=== PATIENT | male | born 1985 | race Caucasian/White ===

== ENCOUNTER 2017-10-29 16:17 | Inpatient (IN) | payer OTHER ==
--- NOTE | 2017-10-29 16:59 | ED ---
Wound/Laceration HPI - General Chief Complaint: Wound/Laceration Stated Complaint: male gu Time Seen by Provider: 10/29/17 16:17 Source: patient, EMS, RN notes reviewed Mode of arrival: EMS Limitations: no limitations - History of Present Illness Initial Comments: 31-year-old male with a benign past medical history who apparently has had testicular pain for the past 3-4 years. He states he couldn't take it anymore today so he cut it out with a leather man knife and flushed down the toilet. His mother called 911 he was brought in for evaluation. He had uncontrolled bleeding per paramedics to was somewhat controlled with pressure. He states his tetanus shots are up-to-date he has no other medical problems 6 no other medication denies any drugs or alcohol at this time. He is ex- was in the [employer] and [employer] overseas. He does not have post medic stress disorder per the patient on questioning. The case was also discussed later with the patient's parents who are present. - Related Data Home Medications Medication Instructions Recorded Confirmed Dm/PE/Acetaminophen/Doxylamine 1 cap PO HS PRN 10/29/17 10/29/17 [Miya-[place] Plus Day-Night Cp] Allergies Allergy/AdvReac Type Severity Reaction Status Date / Time No Known Allergies Allergy Verified 10/29/17 16:51 Review of Systems ROS Statement: Those systems with pertinent positive or pertinent negative responses have been documented in the HPI. ROS Other: All systems not noted in ROS Statement are negative. Past Medical History Additional Past Medical History / Comment(s): Testicular pain Additional Past Surgical History / Comment(s): Patterson Teeth removed Past Psychological History: No Psychological Hx Reported Smoking Status: Former smoker Past Alcohol Use History: None Reported Past Drug Use History: None Reported General Exam - General Exam Comments Initial Comments: This is a well-developed well-nourished awake alert oriented times female he does demonstrate a flat affect. He was brought in by EMS. Limitations: no limitations General appearance: alert, in no apparent distress Head exam: Present: atraumatic, normocephalic, normal inspection Eye exam: Present: normal appearance, PERRL, EOMI. Absent: scleral icterus, conjunctival injection, periorbital swelling ENT exam: Present: normal exam, mucous membranes moist Neck exam: Present: normal inspection. Absent: tenderness, meningismus, lymphadenopathy Respiratory exam: Present: normal lung sounds bilaterally. Absent: respiratory distress, wheezes, rales, rhonchi, stridor Cardiovascular Exam: Present: regular rate, normal rhythm, normal heart sounds. Absent: systolic murmur, diastolic murmur, rubs, gallop, clicks GI/Abdominal exam: Present: soft, normal bowel sounds. Absent: distended, tenderness, guarding, rebound, rigid exam: Present: other (Examination the fifth toe reveals active bleeding from the right scrotum from a 3.5 cm laceration. The actual bleeding site is not visible.) Extremities exam: Present: normal inspection, full ROM, normal capillary refill. Absent: tenderness, pedal edema, joint swelling, calf tenderness Back exam: Present: normal inspection Neurological exam: Present: alert, oriented X3, CN II-XII intact Psychiatric exam: Present: flat affect Skin exam: Present: warm, dry, normal color. Absent: intact, rash Course Vital Signs 10/29/17 10/29/17 16:23 16:30 Temperature 98.1 F Pulse Rate 99 101 H Respiratory 17 17 Rate Blood Pressure 133/79 131/91 O2 Sat by Pulse 100 100 Oximetry - Reevaluation(s) Reevaluation #1: 10/29/17 16:[address] Hou prior to the patient's arrival he did come in to see the patient. Patient will go to the operating room I did discuss case with Dr. Wallace from anesthesia also with Dr. Lou from trauma surgery Reevaluation #2: 10/29/17 17:05 I did discuss case with the patient family members patient will be admitted to the operating room Procedures - Procedures Initial comment: I did attempt to identify the arterial bleeder prepping the scrotum with Betadine and attempted to inject with 2% Xylocaine with epinephrine. I was unable to identify a discrete base of the suspected fascicular arterial bleeding. He was packed and pressure applied pending transfer to the OR. Medical Decision Making - Lab Data Lab Results 10/29/17 Range/Units 16:24 PT 20.8 H (9.0-12.0) sec INR 2.3 H (<1.2) APTT 58.2 H (22.0-30.0) sec - EKG Data -: EKG Interpreted by Me EKG shows normal: sinus rhythm (Sinus tachycardia rate 102. Interval 132 QRS duration 100 QT since QTC 3:30/[address]-T wave configuration) Critical Care Time Critical Care Time: Yes Critical Care Time: 35 minutes of critical care time which includes monitoring the EMS run and discussed with paramedics x-rays discussed with the patient discussed with urology discussed with anesthesiology and discussed with parents. Admission and documentation of the above Disposition Clinical Impression: Laceration of scrotum and testes, History of orchiectomy, Depression Disposition: ADMITTED IP TO THIS HOSP Condition: Serious Referrals: None,Stated [Primary Care Provider] - 1-2 days
[2017-10-29 17:02] LABS: INR 2.3 (<1.2); Partial Thromboplastin Time 58.2 sec (22.0-30.0); Prothrombin Time 20.8 sec (9.0-12.0)
--- NOTE | 2017-10-29 17:03 | P.GSHP ---
History of Present Illness H&P Date: 10/29/17 The patient is a 31-year-old male who arrived in the emergency room this afternoon after self-mutilation. He came via ambulance. He states that he has had chronic testicular pain on the right side and he elected to cut his right testicle off. He cut the testicle off throughout down the toilet and called 911. Emergency room came obviously identified a significant amount of scrotal bleeding. He came in the emergency room and Dr. Jalloh in the emergency room noticed an arterial bleeder but could not control this. Heavy compression dressing was placed on the scrotum. I was contacted. He states that he was in the . He states that he seen several doctors in the for chronic testicular, right, pain but there is no cause or treatment for this chronic testicular pain. He denies PTSD. He denies cycle illnesses. He denies major back issues. He denies bulges or hernias. He denies problems urinating. Vital signs are stable although he is somewhat tachycardic. He is a major hematoma in the scrotum. He will undergo an emergent exploration of the right cord where the vessel be ligated and then I'll drain the hematoma. I explained to the patient the most likely is testicular or scrotal pain will continue. - Constitutional Constitutional: Denies chills, Denies fever - EENT Eyes: denies blurred vision, denies pain Ears, nose, mouth and throat: Denies headache, Denies sore throat - Cardiovascular Cardiovascular: Denies chest pain, Denies shortness of breath - Respiratory Respiratory: Denies cough, Denies 7 - Gastrointestinal Gastrointestinal: Denies abdominal pain, Denies diarrhea, Denies nausea, Denies vomiting - Genitourinary (Female) Genitourinary: Denies dysuria, Denies hematuria - Genitourinary (Male) Genitourinary: Denies dysuria, Denies hematuria - Musculoskeletal Musculoskeletal: Denies myalgias - Integumentary Integumentary: Denies pruritus, Denies rash - Neurological Neurological: Denies numbness, Denies weakness - Psychiatric Psychiatric: Denies anxiety, Denies depression - Endocrine Endocrine: Denies fatigue, Denies weight change Past Medical History Additional Past Medical History / Comment(s): Testicular pain Additional Past Surgical History / Comment(s): Sunflower Teeth removed Past Psychological History: No Psychological Hx Reported Smoking Status: Former smoker Past Alcohol Use History: None Reported Past Drug Use History: None Reported Additional History: The patient was in the for several years. He was deployed to the [place]. He denies PTSD Medications and Allergies Home Medications Medication Instructions Recorded Confirmed Type Dm/PE/Acetaminophen/Doxylamine 1 cap PO HS PRN 10/29/17 10/29/17 History [Mi[facility]-[place] Plus Day-Night Cp] Allergies Allergy/AdvReac Type Severity Reaction Status Date / Time No Known Allergies Allergy Verified 10/29/17 16:51 Surgical - Exam Vital Signs Temp Pulse Resp BP Pulse Ox 98.1 F 99 17 133/79 100 10/29/17 16:23 10/29/17 16:23 10/29/17 16:23 10/29/17 16:23 10/29/17 16:23 - General well developed, well nourished, moderate distress - Eyes PERRL - ENT normal mucosa - Neck no masses - Respiratory normal expansion, normal respiratory effort - Cardiovascular Heart Rate: 100 Rhythm: regular - Abdomen Abdomen: soft, non tender - Genitourinary There is a heavy compression dressing over the right hemiscrotum. There is a marked amount of hematoma in the scrotum. The abdomen is soft. I elected not to expose alone until we get him to the operating room. - Integumentary no rash, no growths - Neurologic normal coordination, normal sensation - Musculoskeletal normal posture - Psychiatric oriented to time, oriented to person, oriented to place, speech is normal, memory intact Assessment and Plan Assessment: Impression: Self-mutilation, right right testicular trauma, right orchiectomy Recommendations: This patient will undergo an emergent exploration of his right inguinal region where the cord will be ligated. I'll then drain the hematoma and explore the scrotum to make sure no further damage has been done. Patient understands that he'll probably still have pain. He understands risk of infection bleeding pain sepsis. He will have a psychiatric evaluation postoperatively
[2017-10-29 17:04] LABS: ALT 24 U/L (21-72); AST 8 U/L (17-59); Albumin 1.2 g/dL (3.5-5.0); Alcohol <10 mg/dL; Alkaline Phosphatase <20 U/L (38-126); Anion Gap 1 mmol/L; Blood Urea Nitrogen 5 mg/dL (9-20); Carbon Dioxide 12 mmol/L (22-30); Glucose 63 mg/dL (74-99); Sodium 143 mmol/L (137-145); Total Bilirubin 0.3 mg/dL (0.2-1.3); Total Protein 2.8 g/dL (6.3-8.2)
[2017-10-29] MEDS ORDERED: NALOXONE 0.4 MG/ML 1 ML VIAL IV PRN (17:08)
[2017-10-29 17:09] LABS: Creatine Kinase 29 U/L (55-170)
[2017-10-29 17:15] LABS: MCH 29.1 pg (25.0-35.0); MCHC 32.2 g/dL (31.0-37.0); MCV 90.4 fL (80.0-100.0); Mean Platelet Volume 6.7; Platelet Count 107 k/uL (150-450); RBC 1.78 m/uL (4.30-5.90); RDW 13.1 % (11.5-15.5); WBC 3.2 k/uL (3.8-10.6)
[2017-10-29] MEDS ORDERED: MIDAZOLAM 2 MG/2 ML VIAL ONE (17:15)
[2017-10-29] MEDS ORDERED: PHENYLEPHRINE-0.9% NACL SYG 1 MG/10 ML SYRINGE ONE (17:15)
[2017-10-29] MEDS ORDERED: PROPOFOL 10 MG/ML 20 ML VIAL IV ONE (17:15)
[2017-10-29] MEDS ORDERED: IV FLUID CONTINUATION 900 ML IV ONE (17:15)
[2017-10-29] MEDS ORDERED: LIDOCAINE 1% INJ 10MG/ML (20 ML MDV) ONE (17:15)
[2017-10-29] MEDS ORDERED: ceFAZolin 1,000 MG VIAL ONE (17:15)
[2017-10-29] MEDS ORDERED: ONDANSETRON 4 MG/2 ML VIAL ONE (17:15)
[2017-10-29] MEDS ORDERED: SUCCINYLCHOLINE CHLORIDE 100 MG/5 ML SYR IV ONE (17:15)
[2017-10-29] MEDS ORDERED: ROCURONIUM BROMIDE 10 MG/ML 10 ML VIAL IV ONE (17:15)
[2017-10-29] MEDS ORDERED: fentaNYL (PF) 50 MCG/ML 2 ML AMP ONE (17:15)
[2017-10-29] MEDS ORDERED: DEXAMETHASONE SOD PHOS (MDV) 100 MG/10 ML VIAL ONE (17:15)
[2017-10-29 17:20] LABS: HCT 16.1 % (39.0-53.0); HGB 5.2 gm/dL (13.0-17.5)
[2017-10-29 17:22] LABS: Creatine Kinase MB 0.3 ng/mL (0.0-2.4); Troponin I <0.012 ng/mL (0.000-0.034)
[2017-10-29 17:29] LABS: Chloride 130 mmol/L (98-107); Potassium 1.5 mmol/L (3.5-5.1)
[2017-10-29 17:30] LABS: Calcium 3.6 mg/dL (8.4-10.2)
[2017-10-29 17:44] LABS: HCT 32.9 % (39.0-53.0); MCH 29.4 pg (25.0-35.0); MCHC 33.8 g/dL (31.0-37.0); Mean Platelet Volume 6.6; RBC 3.78 m/uL (4.30-5.90); RDW 12.8 % (11.5-15.5); WBC 17.2 k/uL (3.8-10.6)
[2017-10-29] MEDS ORDERED: BUPIVACAIN-EPI 0.5%-1:200,000 30 ML VIAL SQ ONE ×2 (17:45→17:52)
[2017-10-29 17:49] LABS: Eosinophils # (M) 0.03 k/uL (0-0.7); Lymphocytes # (M) 0.32 k/uL (1.0-4.8); Monocytes # (M) 0.03 k/uL (0-1.0); Neutrophils # (M) 2.82 k/uL (1.3-7.7); Neutrophils % (M) 88 %; Nucleated Red Blood Cells 0 /100 WBC (0-0); Total Cells Counted 100
[2017-10-29 17:50] LABS: HGB 11.1 gm/dL (13.0-17.5); Platelet Count 226 k/uL (150-450)
[2017-10-29] MEDS ORDERED: ACETAMINOPHEN TAB 325 MG TAB PO PRN (18:04)
[2017-10-29] MEDS ORDERED: HYDROcodone/APAP 5-325MG 1 EACH TAB PO PRN (18:04)
[2017-10-29] MEDS ORDERED: MORPHINE SULFATE 2 MG/ML SYRINGE IV PRN (18:04)
[2017-10-29 18:05] LABS: ALT 27 U/L (21-72); AST 16 U/L (17-59); Albumin 2.9 g/dL (3.5-5.0); Alkaline Phosphatase 29 U/L (38-126); Anion Gap 8 mmol/L; Blood Urea Nitrogen 12 mg/dL (9-20); Calcium 7.5 mg/dL (8.4-10.2); Carbon Dioxide 20 mmol/L (22-30); Chloride 110 mmol/L (98-107); Glucose 144 mg/dL (74-99); Potassium 4.1 mmol/L (3.5-5.1); Sodium 138 mmol/L (137-145); Total Bilirubin 0.6 mg/dL (0.2-1.3)
[2017-10-29] MEDS ORDERED: ONDANSETRON 4 MG/2 ML VIAL IVP PRN (18:10)
[2017-10-29] MEDS ORDERED: KETOROLAC 30 MG/ML 1 ML VIAL IVP PRN (18:10)
--- NOTE | 2017-10-29 18:16 | P.OP ---
Date of Procedure: 10/29/17 Preoperative Diagnosis: Self-mutilation, left orchiectomy, acute blood loss Postoperative Diagnosis: Same Procedure(s) Performed: Right inguinal exploration, ligation of right cord, right scrotal exploration, evacuation of hematoma. Identification of cord structures previously self transected by the patient. Ligation of these structures. Anesthesia: SUNITHA Surgeon: Wild Hou Estimated Blood Loss (ml): 50 Pathology: none sent Condition: stable Disposition: PACU Indications for Procedure: The patient is a 31-year-old gentleman who this afternoon cut his own testicle off and dumped in the toilet because of chronic testicular pain. He immediately called 911 is brought to the emergency room. He is found to have a large gaping hole in his right upper scrotum a large scrotal hematoma and active bleeding. The emergency room staff could not control the bleeding. As I see the patient. The above findings are identified and he comes to the operating room emergently. Description of Procedure: The patient is brought to the operating suite. Him and a successful general endotracheal anesthesia. While there is pressure on the right inguinal cord I make a right inguinal incision. I dissect down through subcutaneous tissue. The external oblique fascias identified. I dissect around the inguinal cord and clamp it. I then explored the hemiscrotum. I evacuated a large clot. I look for a testicle and then is identified. Identify a free ending vas as well as what appears to be a free ending blood vessels. These oversewn with 3-0 Vicryl. I then go back up to the cord and transected. Oversew the cord vessels and vas with 2-0 silk suture ligature I then irrigate thoroughly. I placed a Alfredo-Gudino drain through the scrotum into the inguinal region. I closed the external oblique fascia with interrupted 3-0 Vicryl. The subcutaneous tissue 4-0 chromic and the skin with 4-0 Vicryl. Closed the scrotum in 2 layers of 3-0 chromic. I secured the Alfredo-Gudino to the scrotum with a 3-0 chromic. The wound is dressed. Closing the incision in the inguinal region 10 mL of half percent plain Marcaine block was administered. The patient awake and returned recovery in good condition. Fresh bleeding is probably at most 50 mL. I did evacuated good 2 L of blood out of the scrotum. The patient tolerated procedure well be placed in the hospital postoperatively. Psychiatric evaluation will be asked for.
[2017-10-29] MEDS: SODIUM CHLORIDE 0.9% 1,000 ML IV SCH (20:12)
[2017-10-30 02:19] LABS: Appearance,Urine Clear (Clear); Bacteria,Urine Rare /hpf; Bilirubin,Urine Negative (Negative); Blood,Urine Trace (Negative); Budding Yeast,Urine Rare /hpf; Color,Urine Yellow; Glucose,Urine (UA) Negative (Negative); Hyaline Casts,Urine 3 /lpf (0-2); Ketones,Urine Negative (Negative); Leukocyte Esterase,Urine Negative (Negative); Mucus,Urine Rare /hpf; Nitrite,Urine Negative (Negative); Protein,Urine Negative (Negative); RBC,Urine 11 /hpf (0-5); Specific Gravity,Urine 1.016 (1.001-1.035); Squamous Epithelial Cell,Urine <1 /hpf (0-4); Urobilinogen,Urine <2.0 mg/dL (<2.0); WBC,Urine 1 /hpf (0-5)
[2017-10-30 02:39] LABS: Amphetamine Screen,Urine Not Detected (NotDetected); Barbiturate Screen,Urine Not Detected (NotDetected); Benzodiazepines Screen,Urine Not Detected (NotDetected); Cocaine Screen,Urine Not Detected (NotDetected); Methadone Screen, Urine Not Detected (NotDetected); Opiate Screen,Urine Not Detected (NotDetected); Oxycodone Screen, Urine Not Detected (NotDetected); Phencyclidine Screen,Urine Not Detected (NotDetected); Tricyclic Antidepressant,Urine Not Detected (NotDetected); Urn Cannabinoid Scrn Not Detected (NotDetected)
[2017-10-30 07:36] LABS: Basophils % (A) 0 %; Eosinophils % (A) 0 %; HGB 10.5 gm/dL (13.0-17.5); Lymphocytes # (A) 0.6 k/uL (1.0-4.8); Lymphocytes % (A) 7 %; MCH 29.7 pg (25.0-35.0); MCHC 33.8 g/dL (31.0-37.0); MCV 87.9 fL (80.0-100.0); Mean Platelet Volume 6.5; Monocytes # (A) 0.5 k/uL (0-1.0); Monocytes % (A) 5 %; Neutrophils % (A) 87 %; Platelet Count 214 k/uL (150-450); RBC 3.52 m/uL (4.30-5.90); RDW 13.3 % (11.5-15.5); WBC 9.3 k/uL (3.8-10.6)
[2017-10-30] MEDS: DEXTROSE 5%-0.45% NACL 1,000 ML IV SCH ×2 (09:54→10:00)
[2017-10-30] MEDS: SODIUM CHLORIDE 0.9% 1,000 ML IV SCH ×2 (10:01→14:36)
--- NOTE | 2017-10-30 10:29 | P.PN ---
Subjective Progress Note Date: 10/30/17 The patient is status post right inguinal exploration, ligation of the cord structures, scrotal exploration with evacuation of hematoma and ligation of self mutilated, transected testicle. He has done well overnight. He is using old blood. There is no active bleeding. His vital signs are stable. He seems to be stable mentally. Psychiatry has been consulted but not seen him yet. I will observe him again today. 1 psychiatry cc of improves a discharge then we would allow that. Most of this can be handled as an outpatient. Objective - Vital Signs Vital signs: Vital Signs Temp 97.0 F L 10/30/17 07:00 Pulse 88 10/30/17 07:00 Resp 18 10/30/17 07:00 BP 105/59 10/30/17 07:00 Pulse Ox 97 10/30/17 00:55 Intake & Output 10/29/17 10/30/17 10/30/17 18:59 06:59 18:59 Intake Total 1800 1400 Output Total 50 Balance 1750 1400 Weight 70.307 kg 70.307 kg Intake: IV 800 Amount of Fluid Infused ( 1000 ml) Intake, IV Titration 1000 Amount Sodium Chloride 0.9% 1, 1000 000 ml @ 125 mls/hr IV . Q8H SANDRO Rx#:[id number] Oral 400 Output: Estimated Blood Loss 50 Other: Voiding Method Urinal # Voids 3 - Labs CBC & Chem 7: 10/30/17 06:52 10/29/17 17:35 Labs: Abnormal Lab Results - Last 24 Hours (Table) 10/29/17 10/29/17 10/29/17 Range/Units 16:24 16:24 16:24 WBC 3.2 L (3.8-10.6) k/uL RBC 1.78 L (4.30-5.90) m/uL Hgb 5.2 L* (13.0-17.5) gm/dL Hct 16.1 L* (39.0-53.0) % Plt Count 107 L (150-450) k/uL Neutrophils # (1.3-7.7) k/uL Lymphocytes # (1.0-4.8) k/uL Lymphocytes # (Manual) 0.32 L (1.0-4.8) k/uL PT (9.0-12.0) sec INR (<1.2) APTT (22.0-30.0) sec Potassium 1.5 L* (3.5-5.1) mmol/L Chloride 130 H* (98-107) mmol/L Carbon Dioxide 12 L (22-30) mmol/L BUN 5 L (9-20) mg/dL Creatinine 0.40 L (0.66-1.25) mg/dL Glucose 63 L (74-99) mg/dL Calcium 3.6 L* (8.4-10.2) mg/dL AST 8 L (17-59) U/L Alkaline Phosphatase <20 L (38-126) U/L Total Creatine Kinase 29 L (55-170) U/L Total Protein 2.8 L (6.3-8.2) g/dL Albumin 1.2 L (3.5-5.0) g/dL Urine Blood (Negative) Urine RBC (0-5) /hpf Urine Bacteria (None) /hpf Hyaline Casts (0-2) /lpf Urine Mucus (None) /hpf Urine Yeast (Budding) (None) /hpf U Methamphetamines Scrn (NotDetected) 10/29/17 10/29/17 10/29/17 Range/Units 16:24 17:30 17:35 WBC 17.2 H (3.8-10.6) k/uL RBC 3.78 L (4.30-5.90) m/uL Hgb 11.1 L D (13.0-17.5) gm/dL Hct 32.9 L (39.0-53.0) % Plt Count (150-450) k/uL Neutrophils # (1.3-7.7) k/uL Lymphocytes # (1.0-4.8) k/uL Lymphocytes # (Manual) (1.0-4.8) k/uL PT 20.8 H (9.0-12.0) sec INR 2.3 H (<1.2) APTT 58.2 H (22.0-30.0) sec Potassium (3.5-5.1) mmol/L Chloride 110 H (98-107) mmol/L Carbon Dioxide 20 L (22-30) mmol/L BUN (9-20) mg/dL Creatinine (0.66-1.25) mg/dL Glucose 144 H (74-99) mg/dL Calcium 7.5 L (8.4-10.2) mg/dL AST 16 L (17-59) U/L Alkaline Phosphatase 29 L (38-126) U/L Total Creatine Kinase (55-170) U/L Total Protein 5.0 L (6.3-8.2) g/dL Albumin 2.9 L (3.5-5.0) g/dL Urine Blood (Negative) Urine RBC (0-5) /hpf Urine Bacteria (None) /hpf Hyaline Casts (0-2) /lpf Urine Mucus (None) /hpf Urine Yeast (Budding) (None) /hpf U Methamphetamines Scrn (NotDetected) 10/30/17 10/30/17 Range/Units 02:00 06:52 WBC (3.8-10.6) k/uL RBC 3.52 L (4.30-5.90) m/uL Hgb 10.5 L (13.0-17.5) gm/dL Hct 31.0 L (39.0-53.0) % Plt Count (150-450) k/uL Neutrophils # 8.0 H (1.3-7.7) k/uL Lymphocytes # 0.6 L (1.0-4.8) k/uL Lymphocytes # (Manual) (1.0-4.8) k/uL PT (9.0-12.0) sec INR (<1.2) APTT (22.0-30.0) sec Potassium (3.5-5.1) mmol/L Chloride (98-107) mmol/L Carbon Dioxide (22-30) mmol/L BUN (9-20) mg/dL Creatinine (0.66-1.25) mg/dL Glucose (74-99) mg/dL Calcium (8.4-10.2) mg/dL AST (17-59) U/L Alkaline Phosphatase (38-126) U/L Total Creatine Kinase (55-170) U/L Total Protein (6.3-8.2) g/dL Albumin (3.5-5.0) g/dL Urine Blood Trace H (Negative) Urine RBC 11 H (0-5) /hpf Urine Bacteria Rare H (None) /hpf Hyaline Casts 3 H (0-2) /lpf Urine Mucus Rare H (None) /hpf Urine Yeast (Budding) Rare H (None) /hpf U Methamphetamines Scrn Detected H (NotDetected)
--- NOTE | 2017-10-30 17:52 | P.CN ---
Psychiatric Consult - . Consult date: 10/30/17 Consult:: 10/30/17 17:50 Identifying Information 32 Year old male, single, no children. Lives with his mother. Received honorable discharge 8 months ago from serving in [employer] Psychiatry was consulted to evaluate this patient for depression. Chief complaint Reports to have cut his scrotum due to having pain over the past three years and no one could find the reason/ cause for pain. He reports to have told his mother as the bleeding wont stop. His mother called 911 and brought him to the hospital. His wound was repaired and denies any pain currently History of presenting illness He denies suicidal or homicidal ideations. He stated he has no intentions or plans to kill self. He denies symptoms of depression, gloria or psychosis. Past psychiatric history None reported Substance use history Reports remote use of marijuana. Denies use of marijuana over the past 17 years. He reports drinking alcohol occasionally. Legal problems None reported Family psychiatric treatment history None reported Medical history None reported Social history Reports good childhood. Denies history of abuse. He was 13 when his parents got . He has two full brothers and one half brother. Reports to have obtained associate degree and claims to have worked in [employer] until 8 months ago. Mental status exam 32 year old male. He was on his bed sitting comfortably. He maintains good eye contact. No abnormal movements noted. His speech and thought process were linear and goal directed. His mood is reported as good and affect appropriate. He denies current auditory or visual hallucinations. He denies paranoia. He is alert and oriented X 4. He denies current suicidal or homicidal ideations. His insight and judgment are fair. Diagnosis Adjustment disorder Plan He does not have symptoms of major psychiatric illness. He does need any psychiatric treatment at this time. He does not need sitter as he is not suicidal and feels safe. Thank you for the consult.
[2017-10-31 00:36] VITALS: RESP 16
[2017-10-31] MEDS: DEXTROSE 5%-0.45% NACL 1,000 ML IV SCH ×2 (02:45→08:39)
--- NOTE | 2017-10-31 07:41 | P.DS ---
Providers Date of admission: 10/29/17 17:10 Attending physician: Wild Hou Consults: 10/29/17 18:23 Consult Physician Routine Consulting Provider: Anuja Cervantes Consult Reason/Comments: Self mutilation, depression Do you want consulting provider notified?: Yes Primary care physician: Stated None Hospital Course: The patient is a 32-year-old gentleman who came to the hospital emergently for 36 hours ago after self-mutilation, he cut his own testicle off because of chronic testicular pain. He underwent an emergency exploration and ligation of his cord evacuation of hematoma. Postoperatively he had no problems. His pain was controlled. His vital signs are stable. The drainage was appropriate. The swelling as expected. He was seen by psychiatry to rule out major depressive or psychiatric illness and there is none. Drain was removed today. He is feeling well. He'll be discharged home. He'll be given prescription of Toradol. Will be seen later in the week for reassessment of the wound. Postoperative instructions been given. Patient Condition at Discharge: Stable Plan - Discharge Summary Discharge Rx Participant: Yes New Discharge Prescriptions: New Ketorolac [Toradol] 10 mg PO Q6HR PRN #20 tab PRN Reason: Pain No Action Dm/PE/Acetaminophen/Doxylamine [[facility]-[place] Plus Day-Night Cp] 1 cap PO HS PRN PRN Reason: Insomnia Discharge Medication List Dm/PE/Acetaminophen/Doxylamine [[facility]-[place] Plus Day-Night Cp] 1 cap PO HS PRN 10/29/17 [History] Ketorolac [Toradol] 10 mg PO Q6HR PRN #20 tab 10/31/17 [Rx] Follow up Appointment(s)/Referral(s): None,Stated [Primary Care Provider] - 1-2 days Wild Hou MD [STAFF PHYSICIAN] - 11/04/17
[2017-10-31 07:42] VITALS: BP 101/66; PULSE 75; TEMP 98.5
== END 2017-10-31 12:10 | disposition home or self-care (01) | DRG 730 ==
LOC: EC 16:17 → OBSVTOIN 17:10 → 3SUR 17:10 → 6ICU 17:50 → 3SUR 18:13
PROVIDERS: ADMIT Urology; ATTEND Urology
PROC: 0VL Male Reproductive System, Occlusion (ICD-10-PCS; 2017-10-29)
PROC: 0VQ5XZZ Repair Scrotum, External Approach (ICD-10-PCS; principal; 2017-10-29 17:14)
DX: S38.2 Traumatic amputation of external genital organs (principal); X78.1XXA Intentional self-harm by knife, initial encounter; Y92.009 Unspecified place in unspecified non-institutional (private) residence as the place of occurrence of the external cause; F43.20 Adjustment disorder, unspecified; G89.29 Other chronic pain; N50.811 Right testicular pain; Z87.891 Personal history of nicotine dependence
CPT/HCPCS: 36415; 80053; 80306; 80320; 81001; 82550; 82553; 84484; 85025; 85027; 85610; 85730; 86850; 86900; 86901; 93005; 99285